=== PATIENT | female | born 1995 | race Caucasian/White ===

== ENCOUNTER 2023-12-31 13:58 | Outpatient (AMB) | payer MEDICAID, SELFPAY ==
[2023-12-31 14:08] VITALS: BP 121/84; PULSE 103; RESP 18; TEMP 36.9; O2SAT 98; BMI 17.1
--- NOTE | 2023-12-31 14:08 | PD.GSCLVISIT ---
Vital Signs - [facility] 12/31/23 14:08 Height 1.65 m Height Method Stated Weight 46.72 kg Weight Measurement Method Standing Scale BMI 17.1 BP 121/84 Blood Pressure Source Automatic Cuff Blood Pressure Location Right Upper Arm Position Sitting Respiration 18 Pulse 103 H Pulse Source Monitor Temp 98.5 F Temp Source Temporal Artery Scan Pulse Oximetry (%) 98 Oxygen Delivery Method Room Air Med/Allergies Allergies & Medications Allergies No Known Allergies Allergy (Verified 12/31/23 14:09) Medication Reconciliation methimazole 5 mg tablet 5 mg PO QDAY 12/31/23 [History Confirmed 12/31/23] MA Intake Visit Data Collection New Patient or Established: New Patient (never been to [facility]) Seen by Clinical Staff ONLY (RN/MA): No Reason for Visit:: HEMORRHOIDS REFERRAL Pain Present Currently: No (DISCOMFORT YES) Pain Location: Unable to identify Isotope Technician Required: No PCP or OBGYN visit in last 3 months: Yes Hx Now: No Do You Feel Safe at Home: Yes Authorities Contacted: N/A Smoking Status Smoking Status: Former smoker (WEED) Are you interested in quitting?: No Would you like additional Smoking Cessation Counseling?: No Immunization / Flu Flu Vaccine in the Last 12 Months: No Flu Vaccine Exclusion Criteria: Refused by Patient Past Medical History Past Medical History NEUROLOGIC: Negative Neurological Disorders or Seizures CARDIAC: Negative Cardiac Disorders or Congestive Heart Failure RESPIRATORY: Negative Chronic Obstructive Pulmonary Disease (COPD) GASTROINTESTINAL: Negative Gastrointestinal Disorders GENITOURINARY: Positive Genitourinary Disorders (RECURRENT UTI, FREQUENT URINATION); Negative Renal Disease ENDOCRINE: Negative Endocrine Disorders, Diabetes Mellitus Type 1 or Diabetes Mellitus Type 2 HEMATOLOGIC: Negative Blood Disorders OTHER HISTORY: Positive Chicken Pox; Negative Autoimmune Disease, Blood Transfusions, Blood Transfusion Reaction or Anesthesia Reactions Family History FAMILY HISTORY: Positive Family Psychiatric Problems (MOTHER), Family Cardiac Disorders (PARENTS) and Family Surgery; Negative Family Anesthesia Reaction Social History SMOKING STATUS: Smoking status: Former smoker (WEED) ALCOHOL: Alcohol Intake: Current HOUSING: Housing: Apartment [facility] HPI Narrative 28F presenting with hemorrhoids. Pt reports she has had symptoms since age 14 which were initially worse, with bleeding and pain in the setting of constipation. Pt reports her bowel habits have since improved however she has a persistent raised area at the anus that is sometimes uncomfortable. She denies any bleeding or itching. Pt states she still sometimes has straining with BMs and a feeling that she cannot completely evacuate. She reports drinking 3-4 water bottles daily, does not take fiber, stool softeners and does not use any hemorrhoid remedies PMH: Hyperthyroidism, Hemorrhoids PSHx: None Meds: Methimazole, MVI Allergies: NKDA Social hx: Nonsmoker Family hx: No known malignancies ROS Review of Systems Systems Reviewed: All systems reviewed, normal except as documented Objective/Exam General General Appearance: alert, cooperative and well groomed Resp Respiratory exam: Absent respiratory distress Rectal Rectal exam: Present other (left posterior external hemorrhoid, normal AC) Assessment & Plan Diagnosis / Problem List (1) Hemorrhoids: Status: Acute Assessment & Plan: 28F with longstanding symptomatic hemorrhoids. I explained that ideal management will be eliminating constipation by increasing water intake for goal 2-3L per day and adding fiber to her daily regimen (in powder form). I offered observation in case these remedies resolve her hemorrhoids but pt is interested in having surgery as soon as possible; I explained risks including severe pain, bleeding and hemorrhoid recurrence. Pt expressed understanding and would like to proceed Office Procedures GNS Level of Care Nursing/Assessment Patient Status: Initial/New Patient Nursing Assessment/Reassesment: Medication Reconciliation, Update PMH in EMR and Vital Signs Coordination of Care: Complex Care and Chronic Disease 1-5, Education Complex Pt/Fam, Consent,records obtained, informed consent, 1 Ins Authorization, Results/Orders obtained and Staff clarify orders New Patient Charge New Patient Point Assignment: [id number] New Patient Point Charge: LEARNING SERVICES COORDINATOR Level 3 ([id number]) Patient Portal Questionaires Social History Living Situation History Housing: Apartment Tobacco History Smoking Status: Former smoker (WEED) Alcohol History Alcohol Intake: Current Domestic Abuse History Do You Feel Safe at Home: Yes Review of Systems Report any current symptoms Only answer those that you have currently: Past Medical History Past Medical History Have you ever been diagnosed with any of the following: Neurological Problems Seizures: No Cardiology Problems Congestive Heart Failure: No Respiratory Problems Chronic Obstructive Pulmonary Disease (COPD): No Genital/Urinary Problems Renal Disease: No Endocrine Problems Diabetes Mellitus Type 1: No Diabetes Mellitus Type 2: No Other Problems Autoimmune Disease: No Blood Transfusions: No Blood Transfusion Reaction: No Anesthesia Reactions: No Chicken Pox: Yes
== END 2023-12-31 14:33 | disposition home or self-care (01) ==
LOC: HODSRG 13:58
PROVIDERS: PCP Nurse Practitioner Family; Referring Provider Nurse Practitioner Family; Supervising Provider Surgery; Visit Provider Surgery
DX: K64.9 Unspecified hemorrhoids (principal)
CPT/HCPCS: 99203; G0463

== ENCOUNTER 2024-01-23 09:20 | Day surgery (SDC) | payer MEDICAID, SELFPAY ==
[2024-01-18 10:13] VITALS: BMI 17.6
[2024-01-18 11:24] LABS: Basophils # (Auto) 0.1 Thou/mm3 (0.0-0.2); Basophils % (Auto) 1 % (0-2.5); Eosinophils # (Auto) 0.1 Thou/mm3 (0.0-0.5); Eosinophils % (Auto) 1 % (0-10); Hemoglobin 13.8 g/dL (12.0-16.0); Immature Granulocytes % (Auto) 0 % (0-0); Immature Granulocytes Auto 0.01 Thou/mm3 (0.00-0.00); Lymphocytes % (Auto) 34 % (10-50); Mean Corpuscular HGB Conc 35.4 g/dl (31.0-37.0); Mean Corpuscular Hemoglobin 33.3 pg (25.0-35.0); Mean Corpuscular Volume 94 fL (80-100); Monocytes # (Auto) 0.6 Thou/mm3 (0.0-0.8); Monocytes % (Auto) 10 % (0-12); Neutrophils # (Auto) 3.3 Thou/mm3 (1.8-7.7); Neutrophils % (Auto) 54 % (37-80); Nucleated Red Blood Cell % 0 /100 WBC (0); Platelet Count 327 Thou/mm3 (140-440); RDW Standard Deviation 39.7 fL (36.4-46.3); Red Blood Count 4.15 Miln/mm3 (4.00-5.20); White Blood Count 6.1 Thou/mm3 (3.6-11.0)
[2024-01-18 11:30] LABS: Partial Thromboplastin Time 29.8 Seconds (22.0-36.0); Prothrombin Time 11.4 Seconds (9.0-12.2)
[2024-01-18 11:32] LABS: HCG Qualitative,Urine Negative
[2024-01-18 11:34] LABS: Anion Gap 7 (7-16); BUN/Creatinine Ratio 13 Ratio (12-20); Blood Urea Nitrogen 10 mg/dL (9-23); Calcium 9.7 mg/dL (8.3-10.6); Carbon Dioxide 29.3 mMol/L (20.0-31.0); Chloride 102 mMol/L (98-107); Creatinine (Component) 0.8 mg/dL (0.6-1.3); Estimated Creatinine Clearance 78.5 mL/min (>60); Glucose 79 mg/dL (74-106); Osmolality,Calculated 273 (275-295); Potassium 3.7 mMol/L (3.4-5.1); Sodium 138 mMol/L (136-145); eGFR > 60 See Note
[2024-01-23] VITALS (16 sets, daily range): BP systolic 106–139; BP diastolic 66–92; PULSE 66–96; RESP 12–20; TEMP 36.3–37.1; O2SAT 98–100; BMI 18.3
--- NOTE | 2024-01-23 09:35 | CHAP ---
Prayed with patient and gave encouragement.
[2024-01-23] MEDS: RINGERS LACTATED 1000 ML 1,000 ML 20 ML IV (09:50)
--- NOTE | 2024-01-23 12:58 | PD.SUROPNT ---
Date of Procedure 01/23/24 Pre Op Diagnosis Symptomatic internal hemorrhoids Post Op Diagnosis Same Procedure Transanal hemorrhoidal dearterialization Findings Internal hemorrhoids Procedure Description After discussion of risks and benefits, patient was brought to the operating room, SCDs were placed and general anesthesia was induced. She was placed in lithotomy position with proper padding and was prepped and draped in usual sterile fashion. After timeout a AC was performed which was normal. THD was then undertaken at the 1, 3, 5, 7, 9, and 11:00 positions. As there was no prolapsing tissue Mucopexy was not needed. The anal canal was inspected and hemostasis was confirmed. Left and right pudendal nerve blocks were performed with a total of 20 cc of half percent Marcaine. Patient was returned to supine position and extubated without complication. She was brought to PACU in stable condition Pathology / specimen None Estimated Blood Loss 20 Surgeon Mimi Lopez MD Surgical Staff Operation Date: 01/23/24 11:45 Case Staff HANDLE MACHINE OPERATOR: Elijah Ruiz
--- NOTE | 2024-01-23 13:01 | ESDS_ITS ---
Planned Discharge Date 01/23/24 DS: Providers Provider Primary care physician: KIMBERLY Barragan Attending Provider on Admission: Mimi Lopez MD Attending Provider on DC: Mimi Lopez MD Discharging Provider: Mimi Lopez MD Diagnosis Discharge Diagnosis (1) Hemorrhoids: Status: Acute Problem List Completed Was Problem List Reviewed/Reconciled?: Yes Exam Vital Signs Temp Pulse Resp BP Pulse Ox 98.6 F 66 12 116/86 H 100 01/23/24 09:44 01/23/24 09:44 01/23/24 09:44 01/23/24 09:44 01/23/24 09:44 Discharge Plan Plan Patient Disposition: HOME (Self Care) Prescriptions/Referrals Prescriptions/Med Rec: New oxycodone-acetaminophen [Percocet] 5-325 mg tablet 1 tab PO Q6H MDD 6 tabs PRN (Reason: pain) Qty: 30 0RF ibuprofen 800 mg tablet 800 mg PO Q8H PRN (Reason: pain) Qty: 30 0RF docusate sodium [Colace] 100 mg capsule 100 mg PO QDAY PRN (Reason: constipation) Qty: 30 0RF No Action methimazole 5 mg tablet 5 mg PO QDAY medroxyprogesterone [Provera] 10 mg Tablet 10 mg PO QDAY Referrals: Mimi Lopez MD [Physician] - (You will receive a phone call to confirm a follow-up appt with me in 6 weeks) Isabel Rene FNP [Primary Care Provider] - Patient/Caregiver Discharge Instructions Other Discharge Activity Instructions:: Avoid constipation and diarrhea Stagger doses of Percocet and ibuprofen as needed so that you do not have to wait too long in between doses If you develop worsening pain, fever, inability to urinate or bleeding that does not stop please seek care in ER You may take sitz baths as needed for pain, swelling and bleeding Education Materials: Taking a Sitz Bath Print Language: Kinyarwanda Stand Alone Forms: Ledy Award Info., Patient Portal Info Letter Discharge Order Discharge Orders: Discharge (Routine); Ordered 01/23/24 Ordered By: Mimi Lopez Results Results: Laboratory Laboratory results: results reviewed Procedures Procedure Date 01/23/24 Procedures Transanal hemorrhoidal dearterialization
[2024-01-23] MEDS: HYDROmorphone INJ 2 MG/ML VIAL 0.4 MG IVP ×2 (13:29→13:40)
[2024-01-23] MEDS: ONDANSETRON INJ 2 MG/ML INJ 2 ML 4 MG IV (16:30)
--- NOTE | 2024-01-23 16:35 | SUR.PHASEII ---
Report to Dorina ALONSO
--- NOTE | 2024-01-23 16:35 | SUR.PHASEII ---
report received from nurse pako sparks. pt awake and alert. sitting up in [place]. denies pain and nausea. vss. breathing even and unlabored. pt awaiting discharge, needs to urinate. family at bedside.
--- NOTE | 2024-01-23 17:25 | SUR.PHASEII ---
pt discharged via wheel chair with all belongings. denies pain and nausea. vss. breathing even and unlabored. mother and patient both verbalize understanding of discharge instructions, signed by mom.
== END 2024-01-23 17:25 | disposition home or self-care (01) ==
PROVIDERS: Anesthesiology; PCP Nurse Practitioner Family; Referring Provider Surgery; Visit Provider Surgery
PROC: (CPT 46948; principal; 2024-01-23 11:30)
DX: K64.8 Other hemorrhoids (principal)
CPT/HCPCS: 46948; 36415; 80048; 81025; 84436; 84439; 84443; 85025; 85610; 85730; A4217; A4649; J0131; J1885; J2250; J2371; J2405; J2704; J3010; J3490; J7120; J1596